=== PATIENT | male | born 2000 | race Caucasian/White ===

== ENCOUNTER 2022-12-01 00:01 | Inpatient (IN) ==
--- NOTE | 2022-12-01 00:20 | Emergency Department Note ---
History of Present Illness General Chief complaint: Overdose (Intentional) Time Seen by Provider: 12/01/22 00:07 History of Present Illness 22-year-old male presents emergency department reportedly took a handful of doxycycline may be Adderall may be a Xanax at 10:30 PM this evening he also had 4 shots of vodka. Patient states he is depressed. Patient states he has a lot of stress going on in his life. Patient is currently being treated for chlamydia. Patient has no other complaints no ingestion of aspirin or Tylenol. No prior history of the same Home Medications Medication Instructions Recorded Confirmed Type doxycycline hyclate 100 mg tablet 100 mg PO BID 12/01/22 12/01/22 History Allergies Allergy/AdvReac Type Severity Reaction Status Date / Time No Known Allergies Allergy Verified 12/01/22 00:48 Past Med/Surg History Social History Preferred Language: Yoruba Gender Identity: Male Immunizations: Past medical history is anxiety, chlamydia Social history patient is a [employer] student, admits to alcohol this evening Review of Systems A total of 10 systems reviewed and were otherwise negative Psychiatric: + suicidal ideation and + anxiety Physical Exam Vital Signs Vital Signs - 24 hr 11/30/22 23:55 11/30/22 23:55 12/01/22 00:08 Temperature 36.8 C 36.8 C Temperature Source Oral Oral Pulse Rate 81 Pulse Rate [Apical] 81 Respiratory Rate 18 18 Respiratory Effort / Characteristics Non-Labored Non-Labored Respiratory Depth Normal Normal Respiratory Pattern Regular Regular Blood Pressure 129/73 Blood Pressure [Right Arm] 129/73 Blood Pressure Mean 91 Blood Pressure Mean [Right Arm] 91 Pulse Oximetry 98 98 98 Oxygen Delivery Method Room Air Room Air Room Air Sepsis Recent Fever Within 48 Hours No Sepsis New/Unexplained Change in Mental Status No Sepsis Action Taken by Nursing No Action Required 12/01/22 01:02 12/01/22 05:20 Temperature 36.7 C Temperature Source Oral Pulse Rate Pulse Rate [Apical] 78 68 Respiratory Rate 20 18 Respiratory Effort / Characteristics Non-Labored Non-Labored Respiratory Depth Normal Normal Respiratory Pattern Blood Pressure Blood Pressure [Right Arm] 114/61 113/56 L Blood Pressure Mean Blood Pressure Mean [Right Arm] 78 75 Pulse Oximetry 98 98 Oxygen Delivery Method Room Air Room Air Sepsis Recent Fever Within 48 Hours Sepsis New/Unexplained Change in Mental Status Sepsis Action Taken by Nursing GENERAL: Patient is awake alert in no acute distress patient is resting comfortably and showing no signs of anxiety EYES: The conjunctivae are clear. The pupils are round and reactive. EARS, NOSE, MOUTH AND THROAT: The nose is without any evidence of any deformity. Mucous membranes are moist. Tongue is midline. NECK: The neck is nontender and supple. RESPIRATORY: Normal respiratory effort is noted there is no evidence of wheezing rhonchi or rales CARDIOVASCULAR: Regular rate and rhythm noted there no murmurs rubs or gallops normal S1 normal S2. GASTROINTESTINAL: The abdomen is soft. Abdomen is nontender. PELVIS: The Pelvis is stable. No tenderness to palpation is noted. BACK: No midline tenderness or or step-off noted range of motion in flexion extension as well as rotation no signs of muscle spasm noted MUSCULOSKELETAL/EXTREMITIES: There is no evidence of gross deformity full range of motion is noted in the hips and shoulders. SKIN: There is no obvious evidence of any rash. There are no petechiae, pallor or cyanosis noted. NEUROLOGIC: Patient is awake alert and oriented x3 strength is symmetric Psych; depressed affect, suicidal ideation Course Reevaluation(s) Reevaluation #1: Patient is resting in no distress. Patient is medically cleared. Currently is undergoing a bed search and evaluation for psychiatric treatment Time: 04:51 Medical Decision Making Medical Records Attestation: I reviewed the patient's medical records. Home Medications Current Medication List: was personally reviewed by me Laboratory Data Attestation: I reviewed the patient's lab results. Patient has an elevated blood alcohol level 12/01/22 00:23 12/01/22 00:23 Lab Results 12/01/22 12/01/22 12/01/22 Range/Units 00:22 00:22 00:23 WBC 6.62 (4.8-10.8) K/ul RBC 5.14 (4.70-6.10) M/uL Hgb 15.7 (14.0-18.0) g/dl Hct 44.2 (42.0-52.0) % MCV 86.0 (80.0-100.0) fL MCH 30.5 (25.0-34.0) pg MCHC 35.5 (32.0-36.0) g/dL RDW Std Deviation 38.7 (36.4-46.3) fL RDW Coeff of Tolu 12.4 (11.5-14.5) % Plt Count 218 (130-400) K/uL MPV 10.5 (9.4-12.4) fL Immature Gran % (Auto) 0.3 % Neut % (Auto) 59.7 % Lymph % (Auto) 29.5 % Lane % (Auto) 9.2 % Eos % (Auto) 0.8 % Baso % (Auto) 0.5 % Neut # (Auto) 3.96 (1.40-6.50) K/uL Lymph # (Auto) 1.95 (1.2-3.4) K/uL Lane # (Auto) 0.61 H (0.11-0.59) K/uL Eos # (Auto) 0.05 (0-0.50) K/uL Baso # (Auto) 0.03 (0-0.2) K/uL Immature Gran # (Auto) 0.02 (0.01-0.20) K/uL Sodium (136-145) mmol/L Potassium (3.5-5.1) mmol/L Chloride (98-107) mmol/L Carbon Dioxide (21-32) mmol/L Anion Gap (3-11) BUN (6-23) mg/dl Creatinine (0.6-1.4) mg/dl Est Cr Clr Drug Dosing ml/min Est GFR ( Amer) ml/min Est GFR (Non-Af Amer) ml/min BUN/Creatinine Ratio (10-20) Glucose (70-99(Fasting)) mg/dl Calcium (8.5-10.1) mg/dl Total Bilirubin (0.2-1.0) mg/dl AST (13-39) U/L ALT (7-52) U/L Alkaline Phosphatase (34-104) U/L Total Protein (6.0-8.3) gm/dl Albumin (3.4-5.0) gm/dl Globulin (2.5-4.0) gm/dl Albumin/Globulin Ratio (0.9-2) Urine Color Yellow Urine Appearance Clear (Clear) Urine pH 6.0 (4.5-7.5) Ur Specific [place] 1.008 (1.000-1.030) Urine Protein Negative (Negative) Urine Glucose (UA) Negative (Negative) Urine Ketones Negative (Negative) Urine Blood Trace H (Negative) Urine Nitrite Negative (Negative) Urine Bilirubin Negative (Negative) Urine Urobilinogen Negative (Negative) Ur Leukocyte Esterase 1+ H (Negative) Urine WBC (Auto) 5-10 H (0-5) /hpf Urine RBC (Auto) 0-4 (0-4) /hpf U Hyaline Cast (Auto) 1-5 (0-5) /lpf U Epithel Cells (Auto) >30 H (0-5) /lpf Urine Bacteria (Auto) Negative (Negative) Ur Renal Epithelial Cell Not Reportable Salicylates (3.0-30) mg/dl Urine Opiates Screen Neg (Neg) Ur Methadone, Qual Neg (Neg) Acetaminophen (10-30) ug/ml Urine Barbiturates Neg (Neg) Ur Phencyclidine (PCP) Neg (Neg) U Amphetamin/Meth Scrn Neg (Neg) MDMA (Ecstasy) Screen Neg (Neg) U Benzodiazepines Scrn Neg (Neg) Ur Cocaine Metabolite Pos H (Neg) U Marijuana (THC) Screen Neg (Neg) Ethyl Alcohol mg/dL (<10.0) mg/dl SARS-CoV-2, RNA, NAAT (NEGATIVE) 12/01/22 12/01/22 12/01/22 Range/Units 00:23 00:23 00:23 WBC (4.8-10.8) K/ul RBC (4.70-6.10) M/uL Hgb (14.0-18.0) g/dl Hct (42.0-52.0) % MCV (80.0-100.0) fL MCH (25.0-34.0) pg MCHC (32.0-36.0) g/dL RDW Std Deviation (36.4-46.3) fL RDW Coeff of Tolu (11.5-14.5) % Plt Count (130-400) K/uL MPV (9.4-12.4) fL Immature Gran % (Auto) % Neut % (Auto) % Lymph % (Auto) % Lane % (Auto) % Eos % (Auto) % Baso % (Auto) % Neut # (Auto) (1.40-6.50) K/uL Lymph # (Auto) (1.2-3.4) K/uL Lane # (Auto) (0.11-0.59) K/uL Eos # (Auto) (0-0.50) K/uL Baso # (Auto) (0-0.2) K/uL Immature Gran # (Auto) (0.01-0.20) K/uL Sodium 139 (136-145) mmol/L Potassium 3.7 (3.5-5.1) mmol/L Chloride 105 (98-107) mmol/L Carbon Dioxide 23 (21-32) mmol/L Anion Gap 11 (3-11) BUN 11 (6-23) mg/dl Creatinine 0.98 (0.6-1.4) mg/dl Est Cr Clr Drug Dosing 132.0 ml/min Est GFR ( Amer) 128.1 ml/min Est GFR (Non-Af Amer) 110.5 ml/min BUN/Creatinine Ratio 11.2 (10-20) Glucose 82 (70-99(Fasting)) mg/dl Calcium 9.8 (8.5-10.1) mg/dl Total Bilirubin 0.4 (0.2-1.0) mg/dl AST 18 (13-39) U/L ALT 15 (7-52) U/L Alkaline Phosphatase 114 H (34-104) U/L Total Protein 7.8 (6.0-8.3) gm/dl Albumin 4.8 (3.4-5.0) gm/dl Globulin 3.0 (2.5-4.0) gm/dl Albumin/Globulin Ratio 1.6 (0.9-2) Urine Color Urine Appearance (Clear) Urine pH (4.5-7.5) Ur Specific [place] (1.000-1.030) Urine Protein (Negative) Urine Glucose (UA) (Negative) Urine Ketones (Negative) Urine Blood (Negative) Urine Nitrite (Negative) Urine Bilirubin (Negative) Urine Urobilinogen (Negative) Ur Leukocyte Esterase (Negative) Urine WBC (Auto) (0-5) /hpf Urine RBC (Auto) (0-4) /hpf U Hyaline Cast (Auto) (0-5) /lpf U Epithel Cells (Auto) (0-5) /lpf Urine Bacteria (Auto) (Negative) Ur Renal Epithelial Cell Salicylates < 3.0 L (3.0-30) mg/dl Urine Opiates Screen (Neg) Ur Methadone, Qual (Neg) Acetaminophen < 3 L (10-30) ug/ml Urine Barbiturates (Neg) Ur Phencyclidine (PCP) (Neg) U Amphetamin/Meth Scrn (Neg) MDMA (Ecstasy) Screen (Neg) U Benzodiazepines Scrn (Neg) Ur Cocaine Metabolite (Neg) U Marijuana (THC) Screen (Neg) Ethyl Alcohol mg/dL 158.4 H (<10.0) mg/dl SARS-CoV-2, RNA, NAAT (NEGATIVE) 12/01/22 Range/Units 00:50 WBC (4.8-10.8) K/ul RBC (4.70-6.10) M/uL Hgb (14.0-18.0) g/dl Hct (42.0-52.0) % MCV (80.0-100.0) fL MCH (25.0-34.0) pg MCHC (32.0-36.0) g/dL RDW Std Deviation (36.4-46.3) fL RDW Coeff of Tolu (11.5-14.5) % Plt Count (130-400) K/uL MPV (9.4-12.4) fL Immature Gran % (Auto) % Neut % (Auto) % Lymph % (Auto) % Lane % (Auto) % Eos % (Auto) % Baso % (Auto) % Neut # (Auto) (1.40-6.50) K/uL Lymph # (Auto) (1.2-3.4) K/uL Lane # (Auto) (0.11-0.59) K/uL Eos # (Auto) (0-0.50) K/uL Baso # (Auto) (0-0.2) K/uL Immature Gran # (Auto) (0.01-0.20) K/uL Sodium (136-145) mmol/L Potassium (3.5-5.1) mmol/L Chloride (98-107) mmol/L Carbon Dioxide (21-32) mmol/L Anion Gap (3-11) BUN (6-23) mg/dl Creatinine (0.6-1.4) mg/dl Est Cr Clr Drug Dosing ml/min Est GFR ( Amer) ml/min Est GFR (Non-Af Amer) ml/min BUN/Creatinine Ratio (10-20) Glucose (70-99(Fasting)) mg/dl Calcium (8.5-10.1) mg/dl Total Bilirubin (0.2-1.0) mg/dl AST (13-39) U/L ALT (7-52) U/L Alkaline Phosphatase (34-104) U/L Total Protein (6.0-8.3) gm/dl Albumin (3.4-5.0) gm/dl Globulin (2.5-4.0) gm/dl Albumin/Globulin Ratio (0.9-2) Urine Color Urine Appearance (Clear) Urine pH (4.5-7.5) Ur Specific [place] (1.000-1.030) Urine Protein (Negative) Urine Glucose (UA) (Negative) Urine Ketones (Negative) Urine Blood (Negative) Urine Nitrite (Negative) Urine Bilirubin (Negative) Urine Urobilinogen (Negative) Ur Leukocyte Esterase (Negative) Urine WBC (Auto) (0-5) /hpf Urine RBC (Auto) (0-4) /hpf U Hyaline Cast (Auto) (0-5) /lpf U Epithel Cells (Auto) (0-5) /lpf Urine Bacteria (Auto) (Negative) Ur Renal Epithelial Cell Salicylates (3.0-30) mg/dl Urine Opiates Screen (Neg) Ur Methadone, Qual (Neg) Acetaminophen (10-30) ug/ml Urine Barbiturates (Neg) Ur Phencyclidine (PCP) (Neg) U Amphetamin/Meth Scrn (Neg) MDMA (Ecstasy) Screen (Neg) U Benzodiazepines Scrn (Neg) Ur Cocaine Metabolite (Neg) U Marijuana (THC) Screen (Neg) Ethyl Alcohol mg/dL (<10.0) mg/dl SARS-CoV-2, RNA, NAAT NEGATIVE (NEGATIVE) ECG Data Attestation: I personally reviewed and interpreted this ECG as follows: Additional Comments: EKG interpreted by me normal sinus rhythm rate of 67, normal intervals, normal a xis no obvious ST segment elevation or depression; normal QRS in aVR MDM Narrative Medical decision making differential diagnosis include suicidal ideation, anxiety, depression, intentional overdose Plan is to check labs, EKG, clear for psychiatric evaluation I spoke with gearcase assembler for this patient to be evaluated Patient is medically cleared for psychiatric evaluation Patient is currently under a 201 Patient was evaluated by psychiatry counselor for possible 3 S. placement Case turned over to Dr Chinchilla at [id number] pending dispo Impression & Plan Drug overdose, Depression with suicidal ideation Discharge Plan Visit Data Chief Complaint: Overdose (Intentional) ED Provider: Keven Chinchilla Discharge Problem: Drug overdose, Depression with suicidal ideation Patient Disposition: Still a Patient Forms Stand Alone Forms: [facility], Suicide Prevention Resources Prescriptions Prescriptions: No Action doxycycline hyclate 100 mg Tablet 100 mg PO BID Rx Instructions: PER PT "STARTED 3 DAYS AGO, THEN TONIGHT TOOK THE REST OF THE BOTTLE". Referrals Referrals: PCP,NO [Primary Care Provider] -
[2022-12-01 00:54] LABS: Basophils # (auto) 0.03 K/uL (0-0.2); Basophils % (auto) 0.5 %; Eosinophils # (auto) 0.05 K/uL (0-0.50); Eosinophils % (auto) 0.8 %; Hematocrit (blood only) 44.2 % (42.0-52.0); Hemoglobin 15.7 g/dl (14.0-18.0); Immature Granulocytes # (auto) 0.02 K/uL (0.01-0.20); Immature Granulocytes % (auto) 0.3 %; Lymphocytes # (auto) 1.95 K/uL (1.2-3.4); Lymphocytes % (auto) 29.5 %; Mean Corpuscular Hemoglobin 30.5 pg (25.0-34.0); Mean Corpuscular Hgb Conc 35.5 g/dL (32.0-36.0); Mean Platelet Volume 10.5 fL (9.4-12.4); Monocytes # (auto) 0.61 K/uL (0.11-0.59); Monocytes % (auto) 9.2 %; Neutrophils # (auto) 3.96 K/uL (1.40-6.50); Neutrophils % (auto) 59.7 %; Platelet Count 218 K/uL (130-400); RDW Coefficient of Variation 12.4 % (11.5-14.5); RDW Standard Deviation 38.7 fL (36.4-46.3); Red Blood Count 5.14 M/uL (4.70-6.10); White Blood Count 6.62 K/ul (4.8-10.8)
[2022-12-01 01:02] LABS: Acetaminophen < 3 ug/ml (10-30); Salicylate < 3.0 mg/dl (3.0-30)
[2022-12-01 01:06] LABS: Albumin Globulin Ratio 1.6 (0.9-2); Albumin Level 4.8 gm/dl (3.4-5.0); BUN Creatinine Ratio 11.2 (10-20); Bilirubin,Total 0.4 mg/dl (0.2-1.0); Calcium 9.8 mg/dl (8.5-10.1); Est GFR (African American) 128.1 ml/min; Est GFR (Non-African American) 110.5 ml/min; Potassium 3.7 mmol/L (3.5-5.1); Total Protein 7.8 gm/dl (6.0-8.3)
[2022-12-01 01:33] LABS: Amphetamines+Metham, Urine Neg (Neg); Barbiturates, Urine Neg (Neg); Benzodiazepine, Urine Neg (Neg); Cocaine, Urine Pos (Neg); MDMA (Ecstacy), Urine Neg (Neg); Methadone, Urine Neg (Neg); Opiate, Urine Neg (Neg); Phencyclidine, Urine Neg (Neg)
[2022-12-01 05:46] LABS: Appearance Urine Clear (Clear); Bacteria Urine Automated Negative (Negative); Bilirubin Urine Negative (Negative); Blood Urine Trace (Negative); Color Urine Yellow; Epithelial Cell Urine Auto >30 /lpf (0-5); Glucose Urine UA Negative (Negative); Ketones Urine Negative (Negative); Leukocyte Esterase Urine 1+ (Negative); Nitrite Urine Negative (Negative); Protein Urine Negative (Negative); RBC Urine Automated 0-4 /hpf (0-4); Specific Gravity Urine 1.008 (1.000-1.030); Urobilinogen Urine Negative (Negative)
--- NOTE | 2022-12-01 07:33 | Emergency Department Note ---
ED Visit Note I assumed care at the change of shift. Patient was being assessed for voluntary psychiatric bed placement. He had overdosed on medications prior to arrival. He was felt medically clear. The patient was seen by psychiatry case management. The patient was seen by [facility] psychiatric floor, 3 S. Patient was excepted to 3 S. The voluntary paperwork was signed. .
[2022-12-01] MEDS ORDERED: MAGNESIUM HYDROXIDE SUSP 30 ML UDC PO PRN (10:01)
[2022-12-01] MEDS ORDERED: ALUMINUM/MAGNESIUM SUSP 30 ML UDC PO PRN (10:01)
[2022-12-01] MEDS ORDERED: ACETAMINOPHEN 325 MG TAB PO PRN (10:01)
[2022-12-01] MEDS ORDERED: SODIUM CHLORIDE 0.65% NA SOLN 45 ML (OCEAN) PRN (10:01)
[2022-12-01] MEDS ORDERED: BISMUTH SUBSALICYLATE LIQD 236 ML PO PRN (10:01)
[2022-12-01] MEDS ORDERED: hydrOXYzine HCl 25 MG TAB PO PRN ×2 (10:01)
--- NOTE | 2022-12-01 10:09 | Electrocardiogram Report ---
Test Reason : Blood Pressure : / mmHG Vent. Rate : 067 BPM Atrial Rate : 067 BPM P-R Int : 136 ms QRS Dur : 092 ms QT Int : 382 ms P-R-T Axes : 057 058 044 degrees QTc Int : 403 ms Normal sinus rhythm Normal ECG No previous ECGs available Confirmed by Benson Oconnor ([id number]) on 12/01/2022 10:09:00 AM Referred By: NO PCP Confirmed By:Benson Oconnor
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
--- NOTE | 2022-12-02 08:50 | Psychiatric Progress Note ---
Date of Service December 02, 2022 Impression / Recommendations Impression 22 y/o man with no prior psychiatric history who presented post-overdose in the context of looming potential legal problems and alcohol and cocaine use. There is an obsessive quality to his concerns about "making mistakes" or "getting anyone upset". There is also a paranoid quality to his reticence to discuss pertinent issues, though this may result from fear of incriminating himself. He may meet criteria for major depression, but certainly would for an adjustment disorder and for generalized anxiety disorder. I think it would be appropriate to use an SNRI since it could treat VANESSA as well as MDD (and OCD, if present). Discussed this in detail, including potential risk of elevated BP and of discontinuation symptoms if stopped abruptly. 2002: Reports "feeling a lot better", attributing this to the milieu. He remains guarded but is, at least superficially, more cooperative. "Was able to sleep some" last night. Tolerated the addition of 20 mg duloxetine and, thus far, attributes to it no adverse effects. We've learned that pt had been on doxycycline for chlamydiosis and hadn't completed the 7-day course, so will resume this. (1) Adjustment disorder with mixed disturbance of emotions and conduct: (2) VANESSA (generalized anxiety disorder): Plan 12/02/2022 * increase duloxetine to 40 mg daily * resume doxycycline 100 mg BID for chlamydiosis x 3 more days * continue hydroxyzine 25 mg Q6Hr PRN anxiety 12/01/2022: * Start duloxetine 20 mg daily * Continue hydroxyzine 25 mg Q6Hr PRN anxiety Inventory Assets Strengths: able to verbalize needs, concerned involved family Needs: reduce intrusive, repetitive thoughts Suicide Risk Level Suicide Risk Level: Moderate (q15 min suicide checks) Risk Factors Assessment Male: Yes : Yes Do You Have Access To A Gun?: No Mental Health Diagnoses: No Previous Attempt: No Family History of Suicide: No Previous Psychiatric Hospitalization: No Protective Factors Assessment Employed: No Stable Relationships: Yes Interval History Identifying Information LYNNETTE CHEUNG is a 22-year-old M who currently lives in [place] in a fraternity house, has no clear prior psychiatric history, and was admitted on 12/01/22 10:01 on a 201 voluntary commitment for suicidal thoughts. Chief Complaint "[]". Review of Systems Sleep Information Total Hours of Sleep: 8 Meal Information Percent Meal Consumed - Lunch: 75 Percent Meal Consumed - Dinner: 95 Subjective Subjective Patient was seen & assessed and interval progress reviewed with treatment team nursing and social work Physical Exam Mental Examination Appearance: Disheveled Eye Contact: Avoids Eye Contact Motor Behavior: Restless Speech: Soft Mood: Anxious and Dyphoric Affect: Anxious Thought Process: Intact Thought Content: Obsessional Thoughts and Preoccupation Hallucinations: None Insight: Fair Judgement: Poor Psychiatric Orientation: alert, oriented to person, oriented to place and oriented to time Apperance: appropriately dressed and appropriately groomed Eye Contact: + fair eye contact Motor Behavior: steady gait and station Vital Signs (Past 24 Hours) Last Vital Signs Temp 36.8 C 12/02/22 06:37 Pulse 74 12/02/22 06:38 Resp 16 12/02/22 06:37 BP 128/72 12/02/22 06:38 Pulse Ox 99 12/01/22 11:49 O2 Del Method Room Air 12/01/22 11:49 Results & Data ([facility]) Current Inpatient Medications Current Inpatient Medications: Current Inpatient Medications Acetaminophen (Acetaminophen 325 Mg Tab) 650 mg PO Q4H PRN PRN Reason: Headache or Minor Fever Stop: 12/31/22 10:00 Al Hydrox/Mg Hydrox/Simethicone (Aluminum/Magnesium Susp 30 Ml Udc) 30 ml PO Q4H PRN PRN Reason: GI Upset Stop: 12/31/22 10:00 Bismuth Subsalicylate (Bismuth Subsalicylate Liqd 236 Ml) 15 ml PO PRN PRN PRN Reason: Loose Stool Stop: 12/31/22 10:00 Duloxetine HCl (Duloxetine Hcl 20 Mg Cap) 20 mg PO QAM TORSTEN Stop: 01/01/23 08:59 Last Admin: 12/02/22 08:32 Dose: 20 mg Hydroxyzine HCl (Hydroxyzine Hcl 25 Mg Tab) 25 mg PO Q4H PRN PRN Reason: Anxiety Stop: 12/31/22 10:00 Hydroxyzine HCl (Hydroxyzine Hcl 25 Mg Tab) 50 mg PO HSZ PRN PRN Reason: Insomnia Stop: 12/31/22 10:00 Magnesium Hydroxide (Magnesium Hydroxide Susp 30 Ml Udc) 30 ml PO DAILY PRN PRN Reason: Constipation Stop: 12/31/22 10:00 Sodium Chloride (Sodium Chloride 0.65% Na Soln 45 Ml ([place])) 1 - 2 sprays NA PRN PRN PRN Reason: Nasal Dryness/Congestion Stop: 12/31/22 10:00 Mental Health & Subst Abuse Tx Therapist Name of Therapist: None Orchestra Conductor Name of Orchestra Conductor: None Post Discharge Appointments Primary Care Physician Name Of Family Doctor/PCP: BHARATH
[2022-12-02] MEDS ORDERED: DULoxetine HCL 20 MG CAP PO SCH (09:00)
[2022-12-02] MEDS: DOXYCYCLINE HYCLATE 100 MG CAP PO SCH ×2 (14:29→21:45)
[2022-12-02 14:51] LABS: Cocaine, Urine 1530 ng/mL (<100)
[2022-12-03] MEDS: DOXYCYCLINE HYCLATE 100 MG CAP PO SCH (08:37)
[2022-12-03] MEDS ORDERED: DULoxetine HCL 20 MG CAP PO SCH (09:00)
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
[2022-12-04] MEDS ORDERED: DULoxetine HCL 60 MG CAP PO SCH (09:00)
== END 2022-12-03 10:31 | disposition home or self-care (01) | DRG 882 ==
LOC: ED 00:01 → 3S 10:01